=== PATIENT | female | born 1970 ===

== ENCOUNTER 2024-09-27 07:20 | Day surgery (SDC) | payer OTHER ==
[2024-09-27] MEDS ORDERED: fentaNYL CITRATE 50 MCG/ML AMPUL IV PUSH ONE (14:15)
[2024-09-27] MEDS ORDERED: MIDAZOLAM HCL 2 MG/2 ML VIAL IV ONE (14:15)
[2024-09-27] MEDS ORDERED: ONDANSETRON HCL 2 MG/ML VIAL IV ONE (14:15)
[2024-09-27] MEDS ORDERED: DIPHENHYDRAMINE HCL 50 MG/ML VIAL 1ML IV ONE (14:15)
== END 2024-09-27 16:15 | disposition home or self-care (01) ==
LOC: AMB-ENDOS 07:20
PROVIDERS: ATTEND Colon & Rectal Surgery
DX: D12.0 Benign neoplasm of cecum (principal); D12.2 Benign neoplasm of ascending colon; K63.5 Polyp of colon; R19.4 Change in bowel habit

== ENCOUNTER 2025-01-15 07:00 | Day surgery (SDC) | payer OTHER ==
[2025-01-15] MEDS ORDERED: fentaNYL CITRATE 50 MCG/ML AMPUL IV PUSH ONE (10:15)
[2025-01-15] MEDS ORDERED: ONDANSETRON HCL 2 MG/ML VIAL IV ONE (10:15)
[2025-01-15] MEDS ORDERED: MIDAZOLAM HCL 2 MG/2 ML VIAL IV ONE (10:15)
[2025-01-15] MEDS ORDERED: DIPHENHYDRAMINE HCL 50 MG/ML VIAL 1ML IV ONE (10:15)
== END 2025-01-15 11:30 | disposition home or self-care (01) ==
LOC: AMB-ENDOS 07:00
PROVIDERS: ATTEND Colon & Rectal Surgery
DX: D12.2 Benign neoplasm of ascending colon (principal); D12.5 Benign neoplasm of sigmoid colon; K63.5 Polyp of colon; K57.30 Diverticulosis of large intestine without perforation or abscess without bleeding